=== PATIENT | male | born 1960 | race Caucasian/White ===

== ENCOUNTER 2019-03-20 09:56 | Emergency (ER) | payer OTHER ==
[~2019-03-20] VITALS: Ht 167.6 cm; Wt 81.6 kg
[2019-03-20 09:56] VITALS: BP 165/85
[~2019-03-20 09:56] MED LIST: FERR-15 PO
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
--- NOTE | 2019-03-20 10:13 | NUR ---
Patient being evaluated by Dr. Cardona at bedside.
[2019-03-20] MEDS ORDERED: KETOROLAC 30 MG/ML VIAL IM ONE (10:20)
--- NOTE | 2019-03-20 10:27 | NUR ---
PT WENT FOR X RAY VIA WHEELCHAIR.
--- NOTE | 2019-03-20 11:07 | NUR ---
AT BEDSIDE WITH PT.
[2019-03-20 11:54] VITALS: BP 165/85
--- NOTE | 2019-03-20 11:54 | NUR ---
Patient discharged with v/s stable. Written and verbal after care instructions given and explained. Patient alert, oriented and verbalized understanding of instructions. Ambulatory with steady gait. All questions addressed prior to discharge. ID band removed. Patient advised to follow up with PMD. Rx of ROBAXIN AND MOTRIN given. Patient educated on indication of medication including possible reaction and side effects. Opportunity to ask questions provided and answered.
== END 2019-03-20 11:54 | disposition home or self-care (01) ==
LOC: MED 09:56
DX: S16.1XXA Strain of muscle, fascia and tendon at neck level, initial encounter (principal); F17.210 Nicotine dependence, cigarettes, uncomplicated; Z88.0 Allergy status to penicillin; Z79.899 Other long term (current) drug therapy; Z71.6 Tobacco abuse counseling; V89.2XXA Person injured in unspecified motor-vehicle accident, traffic, initial encounter; Y93.89 Activity, other specified; Y92.89 Other specified places as the place of occurrence of the external cause; Y99.8 Other external cause status
CPT/HCPCS: 72040; 96372; 99283; J1885

== ENCOUNTER 2019-08-31 10:46 | Emergency (ER) | payer OTHER, SELFPAY ==
[~2019-08-31] VITALS: Ht 167.6 cm; Wt 83.9 kg
[2019-08-31 10:54] VITALS: BP 140/96
--- NOTE | 2019-08-31 11:00 | NUR ---
Pt triaged in COVID tent. ERMD made aware of pt status.
--- NOTE | 2019-08-31 11:00 | NUR ---
PATIENT CAME IN TODAY WITH C/O DRY SORE THROAT AND "TIGHTNESS" TO UPPER MID CHEST AREA. DENIES SOB, NO COUGH, STATES ONLY DRYNESS TO THROAT. CHEST TIGHTNESS X 1 DAY NON RADIATING. PAIN LEVEL 05/20. ER MD MADE AWARE OF PATIENT STATUS. ALLERGIES: DENIES MED HX: HEP C, HTN, ANEMIA
--- NOTE | 2019-08-31 11:45 | NUR ---
covid 19 swab obtained and EKG implemented in the tent.
--- NOTE | 2019-08-31 12:01 | NUR ---
1155 CHEST XRAY COMPLETED, NASAL SWAB FOR COVID 19 COMPLETED, AND EKG DONE
--- NOTE | 2019-08-31 12:30 | NUR ---
Patient discharged with v/s stable. Written and verbal after care instructions given and explained. Patient alert, oriented and verbalized understanding of instructions. Ambulatory with steady gait. All questions addressed prior to discharge. ID band removed. Patient advised to follow up with PMD. Rx of PRILOSEC given. Patient educated on indication of medication including possible reaction and side effects. Opportunity to ask questions provided and answered.
== END 2019-08-31 12:30 | disposition home or self-care (01) ==
LOC: EEVIPCON 10:46 → MED 10:46
DX: K21.9 Gastro-esophageal reflux disease without esophagitis (principal); Z20.828 Contact with and (suspected) exposure to other viral communicable diseases; R07.9 Chest pain, unspecified; F17.200 Nicotine dependence, unspecified, uncomplicated; Z88.0 Allergy status to penicillin
CPT/HCPCS: 36415; 71045; 87635; 93005; 99285; Q0092; 99284

== ENCOUNTER 2019-09-20 15:22 | Emergency (ER) | payer OTHER, SELFPAY ==
[~2019-09-20] VITALS: Ht 167.6 cm; Wt 83.9 kg
[2019-09-20 15:28] VITALS: BP 134/77
--- NOTE | 2019-09-20 15:38 | NUR ---
PLACED FULL FOWLERS, PLACED ON 2L NC FOR COMFORT MEASURES. RA 100%.
--- NOTE | 2019-09-20 15:38 | NUR ---
59 Y/O M C/C LEFT UPPER CHEST PAIN X 1 DAY, PRESSURE/PINS SENSATION, NON RADIATING, 8/10 PAIN COMES AND GOES. PT DENIES TAKING OTC RX. PT PRESENTS IN NO RESPIRATORY DISTRESS. ASYMPTOMATIC. PT NKA. HX HEPATITIS C, CHOLESTEROL, ANEMIA. RX LIPITOR, DOES NOT RECALL NAME OF RX FOR ANEMIA. NO N/V/D.
[2019-09-20 16:52] LABS: APPEARANCE,URINE CLEAR (CLEAR); BILIRUBIN,URINE NEGATIVE (NEGATIVE); BLOOD, URINE NEGATIVE (NEGATIVE); COLOR,URINE YELLOW (YELLOW); LEUKOCYTE ESTERASE ,URINE NEGATIVE (NEGATIVE); NITRITE, URINE NEGATIVE (NEGATIVE); PH,URINE 5.5 (5.0-9.0); UGLUCOSE NEGATIVE (NEGATIVE)
[2019-09-20 16:54] LABS: BASOPHILS % (AUTO) 0.5 % (0.0-2.0); EOSINOPHILS # (AUTO) 0.1 K/uL (0-0.4); HEMATOCRIT 41.8 % (36-52); LYMPHOCYTES # (AUTO) 2.8 K/uL (2.0-11.5); LYMPHOCYTES % (AUTO) 43.1 % (20.5-51.1); MEAN CORPUSCULAR HEMOGLOBIN 31 pg (27-31); MEAN CORPUSCULAR HGB CONC 34 g/dL (33-37); MEAN CORPUSCULAR VOLUME 92.8 fL (80-94); MONOCYTES # (AUTO) 0.5 K/uL (0.8-1.0); MONOCYTES % (AUTO) 8.1 % (1.7-9.3); NEUTROPHILS % (AUTO) 46.3 % (42.2-75.2); PLATELET COUNT (AUTO) 226 K/uL (140-450); RED CELL DISTRIBUTION WIDTH 14.6 % (11.6-13.7); WHITE BLOOD COUNT (AUTO) 6.5 K/uL (4.8-10.8)
[2019-09-20 17:01] LABS: PROTHROMBIN TIME 11.1 secs (10.8-13.4)
[2019-09-20 17:02] LABS: ALBUMIN 3.7 g/dL (3.4-5.0); ANION GAP 12.3 (8-16); CARBON DIOXIDE 27.1 mmol/L (21-32); POTASSIUM 3.4 mmol/L (3.5-5.1); TOTAL BILIRUBIN 0.7 mg/dL (0.0-1.0)
[2019-09-20] MEDS ORDERED: KETOROLAC 30 MG/ML VIAL IM ONE (17:20)
[2019-09-20 17:50] VITALS: BP 125/60
== END 2019-09-20 17:50 | disposition home or self-care (01) ==
LOC: MED 15:22
DX: R07.89 Other chest pain (principal); D64.9 Anemia, unspecified; E78.5 Hyperlipidemia, unspecified; Z86.19 Personal history of other infectious and parasitic diseases
CPT/HCPCS: 36415; 71045; 80053; 81003; 83880; 84484; 85025; 85610; 85730; 93005; 96372; 99285; J1885; Q0092

== ENCOUNTER 2021-10-18 21:52 | Emergency (ER) | payer OTHER ==
[~2021-10-18] VITALS: Ht 167.6 cm; Wt 95.3 kg
[2021-10-18 21:58] VITALS: BP 162/95
--- NOTE | 2021-10-18 22:03 | NUR ---
PATIENT TO LOBBY
--- NOTE | 2021-10-18 22:17 | NUR ---
PATIENT AMBULATED TO BED 9
--- NOTE | 2021-10-18 22:24 | NUR ---
SEE COMPLETE ASSESSMENT FOR FUTHER DETAILS.
--- NOTE | 2021-10-18 23:52 | NUR ---
PT TAKEN TO CT
[2021-10-19 01:45] VITALS: BP 138/72
--- NOTE | 2021-10-19 01:45 | NUR ---
Verbal d/c by CHELO Cintron. Patient discharged with v/s stable. Written and verbal after care instructions given and explained. Patient verbalized understanding. Ambulatory with steady gait. All questions addressed prior to discharge. Advised to follow up with PMD.
[2021-10-19] MEDS ORDERED: METH4TAB27 PO (01:48)
== END 2021-10-19 01:45 | disposition home or self-care (01) ==
LOC: MED 21:52
DX: M54.2 Cervicalgia (principal); M25.519 Pain in unspecified shoulder; M79.601 Pain in right arm; R20.0 Anesthesia of skin; E78.5 Hyperlipidemia, unspecified; Z79.899 Other long term (current) drug therapy; Z88.0 Allergy status to penicillin
CPT/HCPCS: 70490; 93005; 99284